=== PATIENT | female | born 1950 | race Caucasian/White ===

== ENCOUNTER 2021-01-14 21:36 | Emergency (ER) | payer OTHER, BC ==
[~2021-01-14] VITALS: Ht 157.5 cm; Wt 53.5 kg
[2021-01-14 21:54] VITALS: BP 152/85
[2021-01-14] MEDS ORDERED: diazePAM 5 MG TAB PO ONE (22:45)
[2021-01-14] MEDS ORDERED: KETOROLAC 30 MG/ML VIAL IM ONE (22:45)
[2021-01-14] MEDS ORDERED: NAPR-1704 PO (22:49)
[2021-01-14 23:25] VITALS: BP 148/88
== END 2021-01-14 23:25 | disposition home or self-care (01) ==
LOC: MED 21:36
DX: S43.401A Unspecified sprain of right shoulder joint, initial encounter (principal); Z79.899 Other long term (current) drug therapy; W19.XXXA Unspecified fall, initial encounter; Y93.89 Activity, other specified; Y92.89 Other specified places as the place of occurrence of the external cause; Y99.8 Other external cause status
CPT/HCPCS: 73030; 96372; 99283; J1885